=== PATIENT | male | born 1995 | race African-American/Black ===

== ENCOUNTER 2017-05-15 21:47 | Emergency (ER) | payer SELFPAY ==
[~2017-05-15] VITALS: Ht 180.3 cm; Wt 70.1 kg
[2017-05-15 21:51] VITALS: Ht 180.3 cm; Wt 70.1 kg
[2017-05-15] MEDS ORDERED: ONDANSETRON INJ 2 MG/ML 2 ML VIAL IV STA (22:17)
[2017-05-15] MEDS ORDERED: LORAZEPAM 2 MG/ML 1 ML VIAL IV STA (22:17)
[2017-05-15] MEDS ORDERED: MoRPHine SULFATE 4 MG/ML 1 ML CARP\\VIAL IV ONE (22:30)
[2017-05-15] MEDS ORDERED: SODIUM CHLORIDE 0.9% 1000ML 1,000 ML IV ONE (22:30)
[2017-05-15] MEDS ORDERED: OPTIRAY 320 IV PRN (22:30)
[2017-05-15 22:34] LABS: BASO % 0.1 %; BASO ABS # 0.01 K/uL (0-0.2); EOS % 0.3 %; EOS ABS # 0.03 K/uL (0-0.5); HEMATOCRIT 46.1 % (42-52); HEMOGLOBIN 15.8 g/dL (14.0-18.0); IG# 0.01 K/uL (0.00-0.02); LYMPH % 25.6 %; LYMPH ABS # 2.28 K/uL (1.2-3.4); MEAN CELL VOLUME 75.5 fL (80-100); MEAN CORPUSCULAR HEMOGLOBIN 25.9 pg (25-34); MEAN CORPUSCULAR HGB CONC 34.3 g/dl (32-36); MONO % 3.9 %; MONO ABS # 0.35 K/uL (0.11-0.59); NEUT ABS # 6.24 K/uL (1.4-6.5); PLATELET COUNT 294 K/uL (130-400); RED CELL DISTRIBUTION WIDTH CV 13.4 % (11.5-14.5); RED CELL DISTRIBUTION WIDTH SD 36.9 fL (36.4-46.3); WHITE BLOOD COUNT 8.92 K/uL (4.8-10.8)
[2017-05-15 22:43] LABS: ISTAT CREATININE 1.1 mg/dl; ISTAT IONIZED CALCIUM 1.12 mmol/l; ISTAT POTASSIUM 3.4 mEq/L (3.3-5.0)
[2017-05-15 22:51] LABS: ALBUMIN 4.2 gm/dl (3.4-5.0); CALCIUM 9.4 mg/dl (8.5-10.1); CREATININE 0.91 mg/dl (0.60-1.40); POTASSIUM 3.4 mmol/L (3.5-5.1)
[2017-05-15 22:54] LABS: TOTAL PROTEIN 8.6 gm/dl (6.4-8.2)
[2017-05-15] MEDS ORDERED: PROCHLORPERAZINE 5 MG/ML 2 ML VIAL IV STA (23:31)
[2017-05-15] MEDS ORDERED: DiphenhydrAMINE HCL 50 MG/ML VIAL IV STA (23:31)
[2017-05-16 00:40] VITALS: BP 108/53; PULSE 82; O2SAT 98
--- NOTE | 2017-05-16 01:59 | EMERGENCY ROOM VISIT NOTE ---
History First contact with patient: 22:13 Chief Complaint: ABDOMINAL PAIN Stated Complaint: AB PAIN Nursing Triage Summary: Patient arrivals via ALS with c/o abdominal pain. Patient moaning and crying in pain. States he has has abdominal pain for 2 days. Cousin said he might have been drinking "[place] drinks" tonight given 100 mcg Fentanyl enroute History of Present Illness The patient is a 21 year old male who presents to the Emergency Room with complaints of chest pain, abdominal pain, and inability to breathe. The patient is yelling and rolling around in his ER bed. He arrives via imbalance and has been given fentanyl prehospital. The patient evidently was drinking alcohol and smoking marijuana tonight just prior to onset of symptoms. The patient is usually healthy without chronic medical disease. He rates his discomfort a 10/10. Review of Systems More than 10 systems were reviewed and otherwise negative with the exception of history of present illness. Past Medical/Surgical History No chronic medical disease Social History Smoking Status: Never Smoker Alcohol Use: heavy Drug Use: marijuana Housing Status: lives with family Current/Historical Medications No Active Prescriptions or Reported Meds Physical Exam Vital Signs Date Time Temp Pulse Resp B/P (MAP) Pulse Ox O2 Delivery O2 Flow Rate FiO2 05/16/17 00:40 82 18 108/53 98 Room Air 05/15/17 23:22 76 24 116/80 100 Room Air 05/15/17 22:04 91 05/15/17 21:51 86 18 135/76 100 Room Air Physical Exam VITALS: Vitals are noted on the nurse's note and reviewed by myself. Vital signs stable. GENERAL: Black male who appears in severe distress rocking back and forth in his ER bed HEAD: Normocephalic atraumatic. EARS: External ear normal. External auditory canals clear, tympanic membranes pearly melgoza without erythema or effusion bilaterally. EYES: Pupils equal round and reactive to light and accommodation. Conjunctivae without injection, sclerae without icterus. Extraocular movements intact. NOSE: Patent, turbinates without inflammation or discharge. MOUTH: Mucous membranes moist. Tonsils are not enlarged. Pharynx without erythema, blood, or exudate. Uvula midline. Airway patent. NECK: Supple without nuchal rigidity. No lymphadenopathy. No thyromegaly. Cervical spine is nontender. HEART: Regular rate and rhythm without murmurs gallops or rubs. LUNGS: Clear to auscultation bilaterally without wheezes, rales or rhonchi. No retractions or accessory muscle use. ABDOMEN: Positive normal bowel sounds x 4. Soft, nontender, without masses or organomegaly. No guarding or rebound tenderness. MUSCULOSKELETAL: No muscle atrophy, erythema, or edema noted. Full range of motion without joint tenderness in all extremities. NEURO: Patient was alert and oriented to person place and time. CN II through XII grossly intact. Medical Decision & Procedures ER Provider Diagnostic Interpretation: Preliminary Findings Only See Final Report For Complete Findings CTA CHEST: Limited by motion. No clear PE. No aortic dissection. No definite pulmonary infiltrate. Preliminary Findings Only See Final Report For Complete Findings CTA ABDOMEN & PELVIS With Contrast: No abdominal aortic aneurysm. No visceral branch occlusion. No GI or urinary tract obstruction. Appendix is not identified due to motion and lack of intraperitoneal fat. Laboratory Results 05/15/17 22:20 Red Blood Count 6.11, Mean Corpuscular Volume 75.5, Mean Corpuscular Hemoglobin 25.9, Mean Corpuscular Hemoglobin Concent 34.3, Mean Platelet Volume 10.0, Neutrophils (%) (Auto) 70.0, Lymphocytes (%) (Auto) 25.6, Monocytes (%) (Auto) 3.9, Eosinophils (%) (Auto) 0.3, Basophils (%) (Auto) 0.1, Neutrophils # (Auto) 6.24, Lymphocytes # (Auto) 2.28, Monocytes # (Auto) 0.35, Eosinophils # (Auto) 0.03, Basophils # (Auto) 0.01 05/15/17 22:20 Test 05/15/17 22:20 05/15/17 22:29 05/15/17 22:30 05/15/17 22:37 White Blood Count 8.92 K/uL (4.8-10.8) Red Blood Count 6.11 M/uL (4.7-6.1) Hemoglobin 15.8 g/dL (14.0-18.0) Hematocrit 46.1 % (42-52) Mean Corpuscular Volume 75.5 fL (80-100) Mean Corpuscular Hemoglobin 25.9 pg (25-34) Mean Corpuscular Hemoglobin Concent 34.3 g/dl (32-36) Platelet Count 294 K/uL (130-400) Mean Platelet Volume 10.0 fL (7.4-10.4) Neutrophils (%) (Auto) 70.0 % Lymphocytes (%) (Auto) 25.6 % Monocytes (%) (Auto) 3.9 % Eosinophils (%) (Auto) 0.3 % Basophils (%) (Auto) 0.1 % Neutrophils # (Auto) 6.24 K/uL (1.4-6.5) Lymphocytes # (Auto) 2.28 K/uL (1.2-3.4) Monocytes # (Auto) 0.35 K/uL (0.11-0.59) Eosinophils # (Auto) 0.03 K/uL (0-0.5) Basophils # (Auto) 0.01 K/uL (0-0.2) RDW Standard Deviation 36.9 fL (36.4-46.3) RDW Coefficient of Variation 13.4 % (11.5-14.5) Immature Granulocyte % (Auto) 0.1 % Immature Granulocyte # (Auto) 0.01 K/uL (0.00-0.02) Est Creatinine Clear Calc Drug Dose 129.5 ml/min Estimated GFR () 141.1 Estimated GFR (Non- 121.7 BUN/Creatinine Ratio 8.6 (10-20) Calcium Level 9.4 mg/dl (8.5-10.1) Total Bilirubin 0.8 mg/dl (0.2-1) Aspartate Amino Transf (AST/SGOT) 14 U/L (15-37) Alanine Aminotransferase (ALT/SGPT) 19 U/L (12-78) Alkaline Phosphatase 82 U/L (45-117) Total Protein 8.6 gm/dl (6.4-8.2) Albumin 4.2 gm/dl (3.4-5.0) Globulin 4.4 gm/dl (2.5-4.0) Albumin/Globulin Ratio 1.0 (0.9-2) Lipase 88 U/L (73-393) Bedside Hemoglobin 16.3 g/dl (14.0-18.0) Bedside Hematocrit 48 % (42-52) Bedside Sodium 144 mEq/L (135-144) Bedside Potassium 3.4 mEq/L (3.3-5.0) Bedside Chloride 103 mEq/L (101-112) Bedside Total CO2 23 mEq/l (24-31) Anion Gap 22.0 mmol/L (16-25) Bedside Blood Urea Nitrogen 7 mg/dl (7-18) Bedside Creatinine 1.1 mg/dl Bedside Glucose (other) 99 mg/dl (70-99) Bedside Ionized Calcium (Barb) 1.12 mmol/l Urine Color YELLOW Urine Appearance CLEAR (CLEAR) Urine pH 6.0 (4.5-7.5) Urine Specific [place] 1.010 (1.000-1.030) Urine Protein NEG (NEG) Urine Glucose (UA) NEG (NEG) Urine Ketones NEG (NEG) Urine Occult Blood NEG (NEG) Urine Nitrite NEG (NEG) Urine Bilirubin NEG (NEG) Urine Urobilinogen NEG (NEG) Urine Leukocyte Esterase NEG (NEG) Urine Opiates Screen NEG (NEG) Urine Methadone, Qualitative NEG (NEG) Urine Barbiturates NEG (NEG) Urine Phencyclidine (PCP) Level NEG (NEG) Ur Amphetamine/Methamphetamine NEG (NEG) MDMA (Ecstasy) Screen NEG (NEG) Urine Benzodiazepines Screen NEG (NEG) Urine Cocaine Metabolite NEG (NEG) Urine Marijuana (THC) POS (NEG) Bedside Troponin I < 0.030 ng/ml (0-0.045) Test 05/15/17 23:08 Ethyl Alcohol mg/dL 180.2 mg/dl (0-3) Medications Administered Medications (Trade) Dose Ordered Sig/Christine Route Start Time Stop Time Status Last Admin Dose Admin Sodium Chloride 1,000 ml @ 999 mls/hr Q1H1M ONCE IV 05/15/17 22:30 05/15/17 23:30 DC 05/15/17 22:42 999 MLS/HR Morphine Sulfate (MoRPHine SULFATE INJ) 4 mg NOW ONCE IV 05/15/17 22:30 05/15/17 22:31 DC 05/15/17 22:41 4 MG Ondansetron HCl (Zofran Inj) 4 mg NOW STAT IV 05/15/17 22:17 05/15/17 22:21 DC 05/15/17 22:38 4 MG Lorazepam (Ativan Inj) 0.5 mg NOW STAT IV 05/15/17 22:17 05/15/17 22:21 DC 05/15/17 22:41 0.5 MG ED Course Physical exam and history were performed. Nursing notes, EMR, and Medication List were personally reviewed. Patient appears to have severe chest pain and abdominal pain that brings him to the ER tonight. Evidently his symptoms began after drinking and smoking marijuana tonight. The patient is rolling back and forth in his ER bed and history is somewhat limited from this. IV access was established and labs were obtained. The patient was hydrated and medicated as above. The patient was sent to CT scan for dissection studies because of his presentation. The patient's blood work is as above and was reviewed. He does not have a significantly elevated white blood cell count, gross anemia, bandemia, or significant electrolyte imbalance. Lipase and transaminases are nondiagnostic. Alcohol is elevated 180. He does have marijuana on his drug of abuse. The patient's CT scans are as above and were reviewed by myself and radiology showing no obvious acute process. The patient was monitored for some time here in the department and had significant improvement of his symptoms over the course of a few hours. He had complete resolution of his pain and was able to sit comfortably and watched television and his ER bed. Overall he appears well for discharge home. I suspect his symptoms are related to smoking marijuana tonight and drinking alcohol. The patient was advised to avoid these in the future. He is to follow with his primary care physician this week for further care and management. The chart was completed utilizing [employer] Speech Voice Recognition Software. Grammatical errors, random word insertions, pronoun errors, and incomplete sentences are an occasional consequence of this system due to software limitations, ambient noise, and hardware issues. Any formal questions or concerns about the content, text, or information contained within the body of this dictation should be directly addressed to the provider for clarification. . Medical Decision Differential diagnosis: Etiologies such as appendicitis, diverticulitis, PUD, biliary pathology, UTI, pancreatitis, obstruction, mesenteric ischemia, aortic pathology, infections, inflammatory bowel disease, renal colic, as well as others were entertained. Impression Primary Impression: Marijuana abuse Additional Impressions: Alcohol intoxication Abdominal pain Chest pain Departure Information Dispostion Home / Self-Care Condition GOOD Prescriptions No Active Prescriptions or Reported Meds Forms HOME CARE DOCUMENTATION FORM, IMPORTANT VISIT INFORMATION Patient Instructions My [facility] Additional Instructions You were seen and evaluated today on an emergency basis only. This is not a substitute for, or an effort to provide, complete comprehensive medical care. It is not possible to recognize and treat all injuries or illnesses in a single emergency department visit. For this reason it is recommended that you followup with your primary care physician this week for recheck of your condition. Avoid alcohol and marijuana. These are the likely cause of your symptoms today. You are welcome to return to the emergency department anytime with new, worsening, or concerning symptoms. Problem Qualifiers
--- NOTE | 2017-05-16 06:33 | DIAGNOSTIC IMAGING REPORT ---
Study: CT angiogram of the chest HISTORY: Chest pain FINDINGS: Thoracic aorta is unremarkable in overall course and caliber. No evidence for aneurysm or dissection. Lungs are considered clear. Pulmonary vasculature enhances appropriately. No major filling defect within limitations of moderate patient motion. IMPRESSION: Negative study. Electronically signed by: Jaspal Saleem M.D. 05/16/2017 6:31 AM Dictated Date/Time: 05/16/2017 6:28 AM
--- NOTE | 2017-05-16 07:13 | DIAGNOSTIC IMAGING REPORT ---
ANGIO ABD/PELVIS WITH CONTRAST CLINICAL HISTORY: Chest and abdominal pain. COMPARISON STUDY: No previous studies for comparison. TECHNIQUE: Helical axial images of the abdomen and pelvis were obtained following intravenous injection 119 cc Optiray 320 IV. Sagittal and coronal reconstructions were viewed as well as maximal intensity projections on an independent 3-D workstation. The CTA of the chest will be reported separately. FINDINGS: The caliber of the abdominal aorta is normal. There is no dissection. The major branch vessels are patent. Evaluation of the remainder of the abdomen and pelvis is markedly optimized given paucity of intra-abdominal fat and motion artifact. Arterial phase images of the liver, spleen, adrenal glands, kidneys and pancreas are grossly unremarkable. There is no hydronephrosis. There is no biliary ductal dilatation. No pneumatosis, free air or portal venous gas is present. There is no evidence for a bowel obstruction. No acute lumbar spine or pelvic fracture is identified. The appendix is not confidently visualized. IMPRESSION: 1. No abdominal aortic aneurysm or dissection. 2. Evaluation of the remainder of the abdomen and pelvis is markedly compromised given motion artifact and paucity of intraperitoneal fat. No definite abnormality identified. Electronically signed by: Lewis Avelar M.D. 05/16/2017 7:12 AM Dictated Date/Time: 05/16/2017 7:05 AM
== END 2017-05-16 00:59 | disposition home or self-care (01) ==
LOC: EDBD 21:47 → C.EDB 21:50
DX: F12.10 Cannabis abuse, uncomplicated (principal); F10.129 Alcohol abuse with intoxication, unspecified; R10.9 Unspecified abdominal pain; R07.9 Chest pain, unspecified; Y90.6 Blood alcohol level of 120-199 mg/100 ml

== ENCOUNTER 2017-07-31 09:28 | Emergency (ER) | payer OTHER ==
[~2017-07-31] VITALS: Ht 177.8 cm; Wt 80.3 kg
[2017-07-31 09:33] VITALS: Ht 177.8 cm; Wt 80.3 kg
[2017-07-31] MEDS ORDERED: ACETAMINOPHEN 500 MG TAB PO STA (09:47)
[2017-07-31] MEDS ORDERED: PROPARACAINE HCL 0.5% OP SOLN 15 ML BTL OP STA (09:47)
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
[2017-07-31 11:30] VITALS: BP 131/76; PULSE 78; TEMP 36.8; O2SAT 98
== END 2017-07-31 11:30 | disposition home or self-care (01) ==
LOC: EDBD 09:28 → C.EDB 09:29
DX: S09.90XA Unspecified injury of head, initial encounter (principal); Y04.8XXA Assault by other bodily force, initial encounter; Y92.511 Restaurant or cafe as the place of occurrence of the external cause